=== PATIENT | female | born 1995 | race Caucasian/White ===

== ENCOUNTER 2017-02-14 18:46 | Emergency (ER) | payer BC ==
--- NOTE | 2017-02-14 20:01 | UC ---
Complaint Female HPI - HPI Summary HPI Summary: dysuria, frequency and urgency for the past 24 hours. There has been some lower abd pain and right lower flank pain. she also has had malaise and achiness. - History Of Current Complaint Chief Complaint: UCRespiratory Stated Complaint: KIDNEY COMPLAINT Time Seen by Provider: 02/14/17 19:34 Hx Obtained From: Patient Hx Last Menstrual Period: 01/25/17 Onset/Duration: Sudden Onset, Lasting Hours Timing: Constant, Lasting Hours Severity Initially: Moderate Severity Currently: Moderate Radiates to: flank Character: Cramping Aggravating Factor(s): Nothing Alleviating Factor(s): Position Associated Signs And Symptoms: Positive: Fever, Back Pain, Nausea. Negative: Vaginal Bleeding/Discharge, Vaginal Discharge, Vomiting(# Of Episodes =), Genital Swelling, Genital Blisters, Retained Foregin Body (Specify) - Allergies/Home Medications Allergies/Adverse Reactions: Allergies Allergy/AdvReac Type Severity Reaction Status Date / Time No Known Allergies Allergy Verified 02/14/17 19:26 Home Medications: Home Medications Bcp DAILY 02/14/17 [History] busPIRone TAB* [Buspar TAB*] 5 mg PO TID 02/14/17 [History Confirmed 02/14/17] PMH/Surg Hx/FS Hx/Imm Hx Previously Healthy: Yes - Surgical History Surgical History: None - Family History Known Family History: Positive: Other - no related family history. - Social History Occupation: Student Alcohol Use: None Substance Use Type: None Smoking Status (MU): Never Smoked Tobacco Review of Systems Genitourinary: Dysuria, Frequency, Urgency All Other Systems Reviewed And Are Negative: Yes Physical Exam Triage Information Reviewed: Yes Appearance: Well-Appearing - changes position easily for exam., No Pain Distress , Well-Nourished Vital Signs: Initial Vital Signs Temp 100.4 F 02/14/17 19:27 Pulse 112 02/14/17 19:27 Resp 16 02/14/17 19:27 BP 113/85 02/14/17 19:27 Pulse Ox 98 02/14/17 19:27 Vital Signs Reviewed: Yes Eyes: Positive: Conjunctiva Clear ENT: Positive: Normal ENT inspection, Pharynx normal Neck: Positive: Supple, Nontender, No Lymphadenopathy Respiratory: Positive: Chest non-tender, Lungs clear, Normal breath sounds, No respiratory distress, No accessory muscle use Cardiovascular: Positive: No Murmur, Pulses Normal, Brisk Capillary Refill Abdomen Description: Positive: Soft, Other: - rlq and right lower flank tenderness without guarding or rebound. Neg rovsig.. Negative: Distended, Guarding Musculoskeletal: Positive: Strength Intact, ROM Intact, No Edema Neurological: Positive: Alert, Muscle Tone Normal. Negative: Fatigued Psychological Exam: Normal Skin Exam: Normal Skin: Negative: rashes Complaint Female Dx - Course Course Of Treatment: She has classic symptoms of uti, frequency, urgency and dysuria. There are some signs of ascending uti and we will start with rocephin. There is rlq tenderness but no risk factors for pid as she says she was sexually active 2mo ago and she uses condoms every time and she has never had STD. We are also considering appendicitis but there is no guarding or rebound and symptoms are more c/w uti. she agrees to return to ED or here tomorrow immediately if this does not improve so that we may re evaluate. - Differential Dx/Diagnosis Provider Diagnoses: uti. pyelonephritis. Discharge - Discharge Plan Condition: Good Disposition: HOME Prescriptions: Sulfamethox/Trimethoprim DS* [Bactrim DS 800/160 TAB*] 1 tab PO BID #20 tab Patient Education Materials: Urinary Tract Infection in Women (ED) Additional Instructions: return here tomorrow if there is no improvement.
[2017-02-14] MEDS ORDERED: cefTRIAXone VIAL(*) 1,000 MG VIAL IM ONE (20:06)
[2017-02-14] MEDS ORDERED: Lidocaine 1% MPF* 2 ML VIAL INJ ONE (20:13)
== END 2017-02-14 20:45 | disposition home or self-care (01) ==
LOC: UCCORT 18:46
DX: N12 Tubulo-interstitial nephritis, not specified as acute or chronic (principal); Z32.02 Encounter for pregnancy test, result negative
CPT/HCPCS: 81003; 84702; 87077; 87086; 87186; 96372; 99202; G0463; J0696

== ENCOUNTER 2019-02-04 19:04 | Emergency (ER) | payer BC ==
[2019-02-04 20:30] VITALS: BP 124/85
[2019-02-04] MEDS ORDERED: Sulfamethox/Trimethoprim DS 800/160* TAB PO ONE (21:18)
--- NOTE | 2019-02-04 21:22 | UC ---
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 She had some vomiting this morning but she has kept food down since then. - History Of Current Complaint Chief Complaint: UCGU Stated Complaint: UTI SYMPTOMS Time Seen by Provider: 02/04/19 21:13 Hx Obtained From: Patient Hx Last Menstrual Period: 01/23/19 ?: No Onset/Duration: Gradual Onset Timing: Constant Severity Initially: Mild Severity Currently: Mild Pain Intensity: 0 Character: Burning Aggravating Factor(s): Urination Associated Signs And Symptoms: Positive: Negative - Allergies/Home Medications Allergies/Adverse Reactions: Allergies Allergy/AdvReac Type Severity Reaction Status Date / Time No Known Allergies Allergy Verified 02/04/19 20:26 Home Medications: Home Medications Norgestrel-Ethinyl Estradiol [Cryselle-28 Tablet] 1 tab DAILY 02/04/19 [History Confirmed 02/04/19] Sertraline* [Zoloft*] 1 tab DAILY 02/04/19 [History Confirmed 02/04/19] PMH/Surg Hx/FS Hx/Imm Hx Previously Healthy: Yes - Surgical History Surgical History: None - Family History Known Family History: Positive: Other - no related family history. - Social History Occupation: Student Lives: Dormitory/Roommates Alcohol Use: Occasionally Substance Use Type: None Smoking Status (MU): Never Smoked Tobacco Review of Systems All Other Systems Reviewed And Are Negative: Yes Gastrointestinal: Positive: Vomiting - Patient had some vomiting early today but has not had any since noon and she did eat lunch at noon. Genitourinary: Positive: Dysuria, Frequency Is Patient Immunocompromised?: No Physical Exam Triage Information Reviewed: Yes Appearance: Well-Appearing, No Pain Distress, Well-Nourished Vital Signs: Initial Vital Signs Temp 98.3 F 02/04/19 20:26 Pulse 77 02/04/19 20:26 Resp 16 02/04/19 20:26 BP 124/85 02/04/19 20:26 Pulse Ox 100 02/04/19 20:26 Vital Signs Reviewed: Yes Respiratory: Positive: Lungs clear, Normal breath sounds, No respiratory distress, No accessory muscle use Cardiovascular: Positive: RRR, No Murmur, Pulses Normal, Brisk Capillary Refill Abdomen Description: Positive: Nontender, No Organomegaly, Soft. Negative: CVA Tenderness (R), CVA Tenderness (L), Distended, Guarding, Hepatomegaly, McBurney' s Point Tenderness, Splenomegaly Bowel Sounds: Positive: Present Musculoskeletal Exam: Normal Neurological Exam: Normal Psychological Exam: Normal Skin Exam: Normal Complaint Female Dx - Course Course Of Treatment: Patient is comfortable here. Her urinalysis showed a urinary tract infection, urine hCG was negative. She is to increase fluids. One dose of Bactrim DS was given here. [facility] if no improvement in 2 or 3 days and go to the emergency room for any worsening symptoms. - Differential Dx/Diagnosis Provider Diagnosis: UTI (urinary tract infection) Discharge ED - Sign-Out/Discharge Documenting (check all that apply): Patient Departure All imaging exams completed and their final reports reviewed: No Studies - Discharge Plan Condition: Good Disposition: HOME Prescriptions: Sulfamethox/Trimethoprim DS* [Bactrim DS 800/160 TAB*] 1 tab PO BID 5 Days #9 tab Patient Education Materials: Urinary Tract Infection in Women (DC) Referrals: No Primary Care Phys,NOPCP [Primary Care Provider] - SHANNON WAITE [[employer], [employer], OTHER] - Additional Instructions: Increase fluids, take the Bactrim with food. Follow-up at the [facility] if no improvement in 2 or 3 days. Go to the emergency room if you develop fever, chills, back pain and vomiting. - Billing Disposition and Condition Condition: GOOD Disposition: Home
--- NOTE | 2019-02-07 07:53 | UC ---
- Progress Note Progress Note: Patient seen here for UTI symptoms. Patient started on Bactrim. Patient's preliminary culture shows Escherichia coli. No change in plans until sensitivities return Course/Dx - Diagnoses Provider Diagnoses: UTI (urinary tract infection) Discharge ED - Sign-Out/Discharge Documenting (check all that apply): Post-Discharge Follow Up All imaging exams completed and their final reports reviewed: No Studies - Discharge Plan Condition: Good Disposition: HOME Prescriptions: Sulfamethox/Trimethoprim DS* [Bactrim DS 800/160 TAB*] 1 tab PO BID 5 Days #9 tab Patient Education Materials: Urinary Tract Infection in Women (DC) Referrals: No Primary Care Phys,NOPCP [Primary Care Provider] - SHANNON WAITE [[employer], [employer], OTHER] - Additional Instructions: Increase fluids, take the Bactrim with food. Follow-up at the [facility] if no improvement in 2 or 3 days. Go to the emergency room if you develop fever, chills, back pain and vomiting. - Billing Disposition and Condition Condition: GOOD Disposition: Home
--- NOTE | 2019-02-08 07:15 | UC ---
- Progress Note Progress Note: +E. coli UTI, sensitive and treated with Bactrim DS. No change in treatment. Course/Dx - Diagnoses Provider Diagnoses: UTI (urinary tract infection) Discharge ED - Sign-Out/Discharge Documenting (check all that apply): Post-Discharge Follow Up All imaging exams completed and their final reports reviewed: No Studies - Discharge Plan Condition: Good Disposition: HOME Prescriptions: Sulfamethox/Trimethoprim DS* [Bactrim DS 800/160 TAB*] 1 tab PO BID 5 Days #9 tab Patient Education Materials: Urinary Tract Infection in Women (DC) Referrals: No Primary Care Phys,NOPCP [Primary Care Provider] - SHANNON WAITE [[email or web address], [employer], OTHER] - Additional Instructions: Increase fluids, take the Bactrim with food. Follow-up at the [facility] if no improvement in 2 or 3 days. Go to the emergency room if you develop fever, chills, back pain and vomiting. - Billing Disposition and Condition Condition: GOOD Disposition: Home
== END 2019-02-04 21:26 | disposition home or self-care (01) ==
LOC: UCCORT 19:04
DX: N39.0 Urinary tract infection, site not specified (principal); R11.10 Vomiting, unspecified; Z32.02 Encounter for pregnancy test, result negative
CPT/HCPCS: 81003; 84702; 87077; 87086; 87186; 99212; A9270-GY; G0463